=== PATIENT | male | born 1975 | race Hispanic/Latino ===

== ENCOUNTER 2023-09-21 11:09 | Inpatient (IN) | payer BC ==
[~2023-09-21] VITALS: Ht 170.2 cm; Wt 82.3 kg
[2023-09-21 11:24] VITALS: TEMP 98.1
[2023-09-21 11:38] LABS: BASOPHILS # (AUTO) 0.1 (0.0-0.1); BASOPHILS % 0.6 % (0.0-1.0); EOSINOPHILS # (AUTO) 0.1 (0.0-0.4); EOSINOPHILS % 1.6 % (0.0-6.0); HEMATOCRIT 45.7 % (38.2-49.6); HEMOGLOBIN 15.5 g/dL (14.0-18.0); LYMPHOCYTES # (AUTO) 1.2 (1.0-3.2); LYMPHOCYTES % 14.2 % (18.0-39.1); MEAN CORPUSCULAR HGB CONC 33.9 g/dL (31-35); MEAN CORPUSCULAR VOLUME 82.5 fL (81-99); MONOCYTES # (AUTO) 0.8 (0.2-0.8); MONOCYTES % 9.3 % (4.4-11.3); NEUTROPHILS # (AUTO) 6.2 (2.1-6.9); NEUTROPHILS % 73.8 % (38.7-80.0); PLATELET COUNT 197 x10e3/uL (140-360); RED BLOOD COUNT 5.54 x10e6/uL (4.3-5.7); RED CELL DISTRIBUTION WIDTH 12.8 % (11.7-14.4); WHITE BLOOD COUNT 8.37 x10e3/uL (4.8-10.8)
[2023-09-21 11:56] LABS: ALBUMIN 4.4 g/dL (3.5-5.0); ALBUMIN/GLOBULIN RATIO 1.7 (0.8-2.0); ANION GAP 14.4 mmol/L (8-16); BILIRUBIN,TOTAL 1.2 mg/dL (0.2-1.2); CALCIUM 9.6 mg/dL (8.4-10.2)
[2023-09-21 11:58] LABS: POTASSIUM 3.4 mmol/L (3.5-5.1)
[2023-09-21 12:10] LABS: CLARITY,URINE CLEAR (CLEAR); COLOR,URINE YELLOW (YELLOW); LEUKOCYTE ESTERASE ,URINE NEGATIVE (NEGATIVE); NITRITE,URINE NEGATIVE (NEGATIVE); PH,URINE 7 (5 - 7); PROTEIN,URINE DIPSTICK NEGATIVE (NEGATIVE)
[2023-09-21 12:11] LABS: BACTERIA,URINE FEW /HPF; BILIRUBIN,URINE NEGATIVE (NEGATIVE); EPITHELIAL CELLS,URINE FEW /LPF; GLUCOSE, URINE NEGATIVE (NEGATIVE); KETONES,URINE NEGATIVE (NEGATIVE); RBC,URINE 21-50 /HPF (0-5); URINE UROBILINOGEN 0.2 mg/dL (0.2 - 1); WBC,URINE (MAN) 0-5 /HPF (0-5)
[2023-09-21] MEDS: SODIUM CHLORIDE 0.9% 1000ML 1,000 ML IV STA (12:50)
[2023-09-21] MEDS: KETOROLAC TROMETHAMINE 30 MG/ML VIAL IV ONE (12:50)
[2023-09-21] MEDS: ONDANSETRON HCL INJ 2MG/ML 2ML 2 MG/ML VIAL IV STA (12:50)
[2023-09-21] MEDS: SODIUM CHLORIDE 0.9% 1000ML 1,000 ML IV SCH (16:13)
[2023-09-21 17:11] VITALS: PULSE 88; RESP 16
[2023-09-21 17:54] VITALS: BP 138/97; PULSE 66; RESP 19; TEMP 98.1; O2SAT 100
[2023-09-21] MEDS ORDERED: FAMOTIDINE20 MG PO (19:56)
[2023-09-21] MEDS ORDERED: LEVOCETIRIZINE D5 MG PO (19:56)
[2023-09-21 20:00] VITALS: BP 130/89; PULSE 60; RESP 18; TEMP 98; O2SAT 100
[2023-09-21 20:10] VITALS: BP 130/89; PULSE 60; RESP 18; TEMP 98; O2SAT 100
[2023-09-22] VITALS (10 sets, daily range): BP systolic 107–145; BP diastolic 58–91; PULSE 58–86; RESP 18–20; TEMP 97.7–98.4; O2SAT 96–100
[2023-09-22 06:08] LABS: BASOPHILS % 0.4 % (0.0-1.0); EOSINOPHILS # (AUTO) 0.2 (0.0-0.4); EOSINOPHILS % 2.9 % (0.0-6.0); HEMOGLOBIN 13.9 g/dL (14.0-18.0); LYMPHOCYTES # (AUTO) 1.2 (1.0-3.2); LYMPHOCYTES % 18.3 % (18.0-39.1); MEAN CORPUSCULAR HGB CONC 33.1 g/dL (31-35); MEAN CORPUSCULAR VOLUME 84.7 fL (81-99); MONOCYTES # (AUTO) 0.7 (0.2-0.8); MONOCYTES % 10.5 % (4.4-11.3); NEUTROPHILS # (AUTO) 4.6 (2.1-6.9); NEUTROPHILS % 67.3 % (38.7-80.0); PLATELET COUNT 173 x10e3/uL (140-360); RED BLOOD COUNT 4.96 x10e6/uL (4.3-5.7); RED CELL DISTRIBUTION WIDTH 12.8 % (11.7-14.4); WHITE BLOOD COUNT 6.79 x10e3/uL (4.8-10.8)
[2023-09-22 06:42] LABS: ALBUMIN 3.7 g/dL (3.5-5.0); ALBUMIN/GLOBULIN RATIO 1.7 (0.8-2.0); BILIRUBIN,TOTAL 1.4 mg/dL (0.2-1.2); CALCIUM 8.8 mg/dL (8.4-10.2); CREATININE, SERUM 0.89 mg/dL (0.72-1.25); TOTAL PROTEIN 5.9 g/dL (6.5-8.1)
[2023-09-22] MEDS: TAMSULOSIN HCL 0.4 MG CAP PO SCH (08:20)
[2023-09-23] VITALS (8 sets, daily range): BP systolic 111–139; BP diastolic 48–91; PULSE 54–82; RESP 17–19; TEMP 97.9–98.7; O2SAT 97–100
[2023-09-23] MEDS: Morphine 4mg INJECTION 4 MG/ML INJ IV PRN (03:17)
[2023-09-23] MEDS: ONDANSETRON HCL INJ 2MG/ML 2ML 2 MG/ML VIAL IV PRN (03:17)
[2023-09-23] MEDS: ACETAMINOPHEN 325 MG TAB PO PRN (13:59)
[2023-09-24] VITALS: BP 128/78; PULSE 60; RESP 17; TEMP 98.3
[2023-09-24 04:00] VITALS: BP 107/75; PULSE 62; RESP 17; TEMP 98.5; O2SAT 98
[2023-09-24] MEDS ORDERED: IOPAMIDOL 610MG/1ML 300 MG/ML VIAL IV ONE (07:15)
[2023-09-24 10:00] VITALS: BP_SYST 125; BP_SYST 142; BP_DIAS 86; BP_DIAS 88; PULSE 80; PULSE 85; RESP 16; RESP 17; TEMP 97.2; TEMP 97.6; O2SAT 97; O2SAT 99
[2023-09-24 12:00] VITALS: BP 144/93; PULSE 65; RESP 16; TEMP 97.6; O2SAT 97
[2023-09-24] MEDS ORDERED: LIDOCAINE HCL 2% LOCAL INJ 5 ML SDV VIAL INJ ONE (14:18)
[2023-09-24] MEDS ORDERED: ONDANSETRON HCL INJ 2MG/ML 2ML 2 MG/ML VIAL ONE (14:18)
[2023-09-24] MEDS ORDERED: LABETALOL HCL 5 MG/ML 20ML VIAL ONE (14:18)
[2023-09-24] MEDS ORDERED: SEVOFLURANE INHAL SOLN 250 ML PEN BTL ONE (14:18)
[2023-09-24] MEDS ORDERED: KETOROLAC TROMETHAMINE 30 MG/ML VIAL ONE (14:18)
[2023-09-24] MEDS ORDERED: PROPOFOL IV EMULSION 10 MG/ML 20 ML VIAL ONE (14:18)
[2023-09-24] MEDS ORDERED: FENTANYL CITRATE/PF 100MCG/2 ML INJ ONE (14:33)
[2023-09-24] MEDS ORDERED: MIDAZOLAM HCL 2 MG/2 ML VIAL ONE (14:33)
[2023-09-24 16:00] VITALS: BP 112/73; PULSE 89; RESP 16; TEMP 98.5; O2SAT 97
[2023-09-24] MEDS: TAMSULOSIN HCL 0.4 MG CAP PO SCH (17:34)
[2023-09-24 20:00] VITALS: BP 151/93; PULSE 76; RESP 18; TEMP 98.3; O2SAT 100
[2023-09-25] VITALS: BP 138/84; PULSE 60; RESP 18; TEMP 98.5; O2SAT 99
[2023-09-25 04:00] VITALS: BP 135/85; PULSE 61; RESP 18; TEMP 97.9; O2SAT 98
[2023-09-25 07:55] VITALS: BP 140/82; PULSE 68; RESP 19; TEMP 98.9; O2SAT 98
[2023-09-25 11:03] VITALS: BP 139/92; PULSE 72; RESP 19; TEMP 98.4; O2SAT 98
[2023-09-25 15:31] VITALS: BP 149/91; PULSE 81; RESP 20; TEMP 98.5; O2SAT 99
[2023-09-25 20:00] VITALS: BP 147/95; PULSE 114; RESP 17; TEMP 98.9; O2SAT 97
[2023-09-26] VITALS: BP 144/84; PULSE 82; RESP 18; TEMP 98.7; O2SAT 97
[2023-09-26 04:00] VITALS: BP 144/92; PULSE 76; RESP 17; TEMP 98.4; O2SAT 96
[2023-09-26 07:47] LABS: BASOPHILS # (AUTO) 0.1 (0.0-0.1); BASOPHILS % 0.7 % (0.0-1.0); EOSINOPHILS # (AUTO) 0.2 (0.0-0.4); EOSINOPHILS % 1.8 % (0.0-6.0); HEMATOCRIT 44.4 % (38.2-49.6); HEMOGLOBIN 14.5 g/dL (14.0-18.0); LYMPHOCYTES % 11.5 % (18.0-39.1); MEAN CORPUSCULAR HEMOGLOBIN 27.9 pg (28-32); MEAN CORPUSCULAR HGB CONC 32.7 g/dL (31-35); MEAN CORPUSCULAR VOLUME 85.5 fL (81-99); MONOCYTES # (AUTO) 0.8 (0.2-0.8); MONOCYTES % 8.8 % (4.4-11.3); NEUTROPHILS # (AUTO) 6.7 (2.1-6.9); NEUTROPHILS % 76.6 % (38.7-80.0); PLATELET COUNT 196 x10e3/uL (140-360); RED BLOOD COUNT 5.19 x10e6/uL (4.3-5.7); RED CELL DISTRIBUTION WIDTH 12.7 % (11.7-14.4); WHITE BLOOD COUNT 8.77 x10e3/uL (4.8-10.8)
[2023-09-26 07:57] VITALS: BP 148/88; PULSE 78; RESP 16; TEMP 98.1; O2SAT 96
[2023-09-26 08:21] LABS: ALBUMIN 4.2 g/dL (3.5-5.0); ALBUMIN/GLOBULIN RATIO 1.9 (0.8-2.0); ANION GAP 12.3 mmol/L (8-16); BILIRUBIN,TOTAL 1.5 mg/dL (0.2-1.2); CALCIUM 9.4 mg/dL (8.4-10.2); CREATININE, SERUM 1.03 mg/dL (0.72-1.25); POTASSIUM 3.3 mmol/L (3.5-5.1); TOTAL PROTEIN 6.4 g/dL (6.5-8.1)
[2023-09-26 11:23] VITALS: BP 144/90; PULSE 76; RESP 17; TEMP 98; O2SAT 98
== END 2023-09-26 13:25 | disposition home or self-care (01) | DRG 661 ==
LOC: ER 11:28 → ERHOLD 14:49 → MED/SURG2 17:41 → OBSVTOIN 09-23 10:09
PROVIDERS: ADMIT Internal Medicine; ATTEND Internal Medicine
PROC: 0TC78ZZ Extirpation of Matter from Left Ureter, Via Natural or Artificial Opening Endoscopic (ICD-10-PCS; 2023-09-24)
PROC: 0T7D8ZZ Dilation of Urethra, Via Natural or Artificial Opening Endoscopic (ICD-10-PCS; 2023-09-24)
PROC: 0T788DZ Dilation of Bilateral Ureters with Intraluminal Device, Via Natural or Artificial Opening Endoscopic (ICD-10-PCS; principal; 2023-09-24 07:44)
PROC: BT141ZZ Fluoroscopy of Kidneys, Ureters and Bladder using Low Osmolar Contrast (ICD-10-PCS; 2023-09-24 07:44)
DX: N13.2 Hydronephrosis with renal and ureteral calculous obstruction (principal); N35.819 Other urethral stricture, male, unspecified site; N40.1 Benign prostatic hyperplasia with lower urinary tract symptoms; N99.89 Other postprocedural complications and disorders of genitourinary system; R33.8 Other retention of urine; R11.2 Nausea with vomiting, unspecified; D64.9 Anemia, unspecified; K21.9 Gastro-esophageal reflux disease without esophagitis; E66.9 Obesity, unspecified; Z68.28 Body mass index [BMI] 28.0-28.9, adult; J30.1 Allergic rhinitis due to pollen; Z11.52 Encounter for screening for COVID-19; Z79.899 Other long term (current) drug therapy; Z88.0 Allergy status to penicillin
CPT/HCPCS: 36415; 74018; 74176; 74420; 80053; 81001; 85025; 87086; 88300; 99284; C1758; C1769; C2617; G0378; J1885; J2001; J2250; J2270; J2405; J7030; U0002

== ENCOUNTER → 2023-11-26 | Day surgery (SDC) | payer BC ==
[~2023-11-26] MED LIST: DEXAMETHASONE SOD PHOS INJ 4 MG/ML SDV ONE; FAMOTIDINE20 MG PO; FENTANYL CITRATE/PF 100MCG/2 ML INJ ONE; FLOMAX0.4 MG PO; GLUCOSAMINE1000 MG PO; IOPAMIDOL 610MG/1ML 300 MG/ML VIAL IV ONE; LEVOCETIRIZINE D5 MG PO; LIDOCAINE HCL 2% LOCAL INJ 5 ML SDV VIAL INJ ONE; MIDAZOLAM HCL 2 MG/2 ML VIAL ONE; OCUVITE LUTEIN1 EACH PO; ONDANSETRON HCL INJ 2MG/ML 2ML 2 MG/ML VIAL ONE; PROPOFOL IV EMULSION 10 MG/ML 20 ML VIAL ONE; SEVOFLURANE INHAL SOLN 250 ML PEN BTL ONE; VESICARE5 MG PO
[2023-11-26] MEDS: LEVOFLOXACIN 500MG/D5W 100ML 100 ML IV ONE (06:25)
[2023-11-26] MEDS: LACTATED RINGER'S 1,000 ML ONE (06:25)
[2023-11-26] MEDS: CEFTRIAXONE 1 GM VIAL ONE (06:26)
[2023-11-26] MEDS: GENTAMICIN 80MG/NS 100 ML 200 ML IV ONE (06:26)
[2023-11-26] MEDS: PHENAZOPYRIDINE HCL 100 MG TAB ONE (10:30)
[2023-11-26 11:00] VITALS: BP 132/82; PULSE 85; RESP 14; O2SAT 100
== END | disposition home or self-care (01) ==
LOC: OR 05:27
PROVIDERS: ATTEND Urology
DX: N20.0 Calculus of kidney (principal); Z46.6 Encounter for fitting and adjustment of urinary device; N40.0 Benign prostatic hyperplasia without lower urinary tract symptoms; N32.89 Other specified disorders of bladder; K21.9 Gastro-esophageal reflux disease without esophagitis; Z88.0 Allergy status to penicillin; Z01.810 Encounter for preprocedural cardiovascular examination; Z01.818 Encounter for other preprocedural examination; Z79.899 Other long term (current) drug therapy
CPT/HCPCS: 52352; 74018; 74420; 88300; 93005; C1769; J1100; J1580; J1956; J2003; J2250; J2405; J2704; J3010; J7121; Q9967; J0696

== ENCOUNTER → 2024-04-03 | Outpatient (REF) | payer BC ==
[~2024-04-03] MED LIST changes: -DEXAMETHASONE SOD PHOS INJ 4 MG/ML SDV ONE; -FENTANYL CITRATE/PF 100MCG/2 ML INJ ONE; -IOPAMIDOL 610MG/1ML 300 MG/ML VIAL IV ONE; -LIDOCAINE HCL 2% LOCAL INJ 5 ML SDV VIAL INJ ONE; -MIDAZOLAM HCL 2 MG/2 ML VIAL ONE; -ONDANSETRON HCL INJ 2MG/ML 2ML 2 MG/ML VIAL ONE; -PROPOFOL IV EMULSION 10 MG/ML 20 ML VIAL ONE; -SEVOFLURANE INHAL SOLN 250 ML PEN BTL ONE
== END ==
LOC: RAD 14:40
PROVIDERS: ATTEND Urology
DX: N13.2 Hydronephrosis with renal and ureteral calculous obstruction (principal); R31.21 Asymptomatic microscopic hematuria
CPT/HCPCS: 74018